=== PATIENT | male | born 1975 | race Hispanic/Latino ===

== ENCOUNTER 2021-01-22 18:31 | Inpatient (IN) | payer OTHER, BC ==
[~2021-01-22] VITALS: Ht 157.5 cm; Wt 82.1 kg
[2021-01-22 19:40] LABS: BASOPHILS % (AUTO) 0.3 % (0.0-5.0); EOSINOPHILS % (AUTO) 1.1 % (0.0-8.0); LYMPHOCYTES % (AUTO) 15.3 % (21.0-51.0); MEAN CORPUSCULAR HEMOGLOBIN 28.5 pg (27.0-33.0); MEAN CORPUSCULAR HGB CONC 32.6 g/dL (32.0-36.0); MEAN CORPUSCULAR VOLUME 87.5 fL (79-99); MONOCYTES % (AUTO) 9.6 % (3.0-13.0); NEUTROPHILS % (AUTO) 72.9 % (40.0-77.0); PLATELET COUNT (AUTO) 642 K/uL (130-400); RED CELL DISTRIBUTION WIDTH 13.2 % (11.0-15.5); WHITE BLOOD COUNT (AUTO) 11.3 K/uL (4.8-10.8)
[2021-01-22 19:56] LABS: INR 1.22 (0.85-1.15); PROTHROMBIN TIME 13.1 SEC (9.6-11.6)
[2021-01-22 19:57] LABS: PARTIAL THROMBOPLASTIN TIME 26.1 SEC (26.3-35.5)
[2021-01-22 20:05] LABS: CARBON DIOXIDE 29 mmol/L (21-32); CHLORIDE 96 mmol/L (101-111); CREATININE 1.1 mg/dL (0.5-1.5); GLOMERULAR FILTR. RATE CALC 78 mL/min (>60); GLUCOSE,RANDOM 106 mg/dL (70-105); POTASSIUM 3.6 mmol/L (3.5-5.1); SODIUM SERUM 134 mmol/L (136-145); UREA NITROGEN, BLOOD 13 mg/dL (7-18)
[2021-01-22 20:09] LABS: B-TYPE NATRIURETIC PEPTIDE 166 pg/mL (0-100)
[2021-01-22 20:09] LABS: APPEARANCE,URINE Clear (CLEAR); BILIRUBIN,URINE Negative (NEGATIVE); COLOR,URINE Yellow (YELLOW); GLUCOSE, URINE (UA) Negative (NEGATIVE); KETONES,URINE Negative (NEGATIVE); LEUKOCYTE ESTERASE ,URINE Negative (NEGATIVE); NITRATE,URINE Negative (NEGATIVE); OCCULT BLOOD,URINE Negative (NEGATIVE); PH,URINE 5.5 (5.0-8.0); PROTEIN,URINE Negative (NEGATIVE); UROBILINOGEN,URINE 0.2 mg/dL (0.2-1.0)
[2021-01-22 20:18] LABS: ALANINE AMINOTRANSFERASE 66 U/L (12-78); ALBUMIN 3.3 g/dL (3.5-5.0); ASPARTATE AMINOTRANSFERASE 46 U/L (10-37); BILIRUBIN,TOTAL 0.5 mg/dL (0.2-1.0); CREATINE KINASE, TOTAL 41 U/L (21-232); MYOGLOBIN 22 ng/mL (10-92); TOTAL PROTEIN, SERUM 8.5 g/dL (6.0-8.3); TROPONIN I < 0.04 ng/mL (0.00-0.06)
[2021-01-22] MEDS ORDERED: IOHEXOL-350 75 ML VIAL IV ONE (21:03)
[2021-01-22] MEDS ORDERED: MORPHINE SULFATE 2 MG/ML 1ML SYG IV PRN (23:45)
[2021-01-23] VITALS (7 sets, daily range): BP systolic 100–130; BP diastolic 53–75
[2021-01-23] MEDS ORDERED: AZITHROMYCIN 500MG+NS 250ML 250 ML IV SCH
[2021-01-23] MEDS ORDERED: AZITHROMYCIN 500MG+NS 250ML 250 ML IV ONE ×2 (00:43→00:58)
[2021-01-23] MEDS ORDERED: GUAIFENESIN-DM 200/20 MG 10 ML PO PRN (00:45)
[2021-01-23] MEDS ORDERED: ACETAMINOPHEN EXTRA STRENGTH 500 MG TABLET ONE (00:58)
[2021-01-23] MEDS: DOXYCYCLINE 100MG+NS 250ML 250 ML IV SCH ×2 (02:23→12:59)
[2021-01-23] MEDS ORDERED: TRAM50TA4 PO (03:03)
[2021-01-23] MEDS ORDERED: POTA20TA12 PO (03:03)
[2021-01-23] MEDS ORDERED: METO25TA6 PO (03:03)
[2021-01-23] MEDS ORDERED: CYCL5TAB PO (03:03)
[2021-01-23] MEDS ORDERED: ATOR40TA71 PO (03:03)
[2021-01-23] MEDS ORDERED: FURO20TA4 PO (03:03)
[2021-01-23 04:40] LABS: BASOPHILS % (AUTO) 0.2 % (0.0-5.0); EOSINOPHILS % (AUTO) 1.5 % (0.0-8.0); HEMATOCRIT 30.2 % (42-54); LYMPHOCYTES % (AUTO) 18.8 % (21.0-51.0); MEAN CORPUSCULAR HGB CONC 32.1 g/dL (32.0-36.0); NEUTROPHILS % (AUTO) 69.7 % (40.0-77.0); PLATELET COUNT (AUTO) 559 K/uL (130-400); RED BLOOD CELL COUNT(AUTO) 3.47 MIL/uL (4.50-6.20); RED CELL DISTRIBUTION WIDTH 13.2 % (11.0-15.5); WHITE BLOOD COUNT (AUTO) 9.1 K/uL (4.8-10.8)
[2021-01-23 05:12] LABS: ALBUMIN 2.8 g/dL (3.5-5.0); BILIRUBIN,TOTAL 0.6 mg/dL (0.2-1.0); POTASSIUM 3.9 mmol/L (3.5-5.1); TOTAL PROTEIN, SERUM 7.3 g/dL (6.0-8.3)
[2021-01-23] MEDS: POLYETHYLENE GLYCOL 3350 17 GM POWD.PACK PO SCH (09:00)
[2021-01-23] MEDS: FAMOTIDINE/PF 20 MG/2 ML VIAL IV SCH (10:09)
[2021-01-23] MEDS: FUROSEMIDE 20 MG TABLET PO SCH (10:09)
[2021-01-23] MEDS: ASPIRIN 81 MG EC TAB PO SCH (10:09)
[2021-01-23] MEDS: ACETAMINOPHEN 325 MG TAB PO PRN ×2 (11:39→18:37)
[2021-01-23] MEDS ORDERED: TRAMADOL HCL 50 MG TABLET PO PRN (12:00)
[2021-01-23] MEDS ORDERED: MORPHINE SULFATE 2 MG/ML 1ML SYG IVP PRN (12:00)
[2021-01-23 12:39] LABS: CREATINE KINASE, TOTAL 25 U/L (21-232); MYOGLOBIN 17 ng/mL (10-92); TROPONIN I < 0.04 ng/mL (0.00-0.06)
[2021-01-23] MEDS: CEFEPIME HCL 1 GM VIAL IVP SCH ×2 (14:35→21:22)
[2021-01-23 17:37] LABS: CREATINE KINASE, TOTAL 27 U/L (21-232); MYOGLOBIN 19 ng/mL (10-92); TROPONIN I < 0.04 ng/mL (0.00-0.06)
[2021-01-23] MEDS ORDERED: METOPROLOL TARTRATE 25 MG TAB PO SCH (21:00)
[2021-01-23] MEDS: ATORVASTATIN CALCIUM 40 MG TABLET PO SCH (21:23)
[2021-01-23] MEDS: COLCHICINE 0.6 MG TABLET PO SCH (21:23)
[2021-01-23] MEDS: METOPROLOL TARTRATE 25 MG TAB PO SCH (21:23)
[2021-01-24 00:55] LABS: CREATINE KINASE, TOTAL 23 U/L (21-232); MYOGLOBIN 15 ng/mL (10-92); TROPONIN I < 0.04 ng/mL (0.00-0.06)
[2021-01-24 03:52] VITALS: BP 119/65
[2021-01-24] MEDS: CEFEPIME HCL 1 GM VIAL IVP SCH ×2 (05:13→13:33)
[2021-01-24 05:15] LABS: CHOLESTEROL 82 mg/dL (<200); HDL CHOLESTEROL 30 mg/dL (29-71); LDL DIRECT 44 mg/dL (0-99); TRIGLYCERIDES 48 mg/dL (30-200)
[2021-01-24 07:21] LABS: BASOPHILS % (AUTO) 0.3 % (0.0-5.0); EOSINOPHILS % (AUTO) 1.4 % (0.0-8.0); HEMATOCRIT 31.1 % (42-54); LYMPHOCYTES % (AUTO) 15.4 % (21.0-51.0); MEAN CORPUSCULAR HEMOGLOBIN 28.8 pg (27.0-33.0); MEAN CORPUSCULAR HGB CONC 33.1 g/dL (32.0-36.0); MEAN CORPUSCULAR VOLUME 86.9 fL (79-99); MONOCYTES % (AUTO) 9.1 % (3.0-13.0); NEUTROPHILS % (AUTO) 73.2 % (40.0-77.0); PLATELET COUNT (AUTO) 552 K/uL (130-400); RED BLOOD CELL COUNT(AUTO) 3.58 MIL/uL (4.50-6.20); RED CELL DISTRIBUTION WIDTH 13.5 % (11.0-15.5); WHITE BLOOD COUNT (AUTO) 9.9 K/uL (4.8-10.8)
[2021-01-24 07:37] LABS: CREATININE 0.9 mg/dL (0.5-1.5); POTASSIUM 3.5 mmol/L (3.5-5.1)
[2021-01-24 08:49] VITALS: BP 122/72
[2021-01-24] MEDS: POLYETHYLENE GLYCOL 3350 17 GM POWD.PACK PO SCH (09:00)
[2021-01-24] MEDS: ASPIRIN 81 MG EC TAB PO SCH (09:03)
[2021-01-24] MEDS: COLCHICINE 0.6 MG TABLET PO SCH (09:04)
[2021-01-24] MEDS: FUROSEMIDE 20 MG TABLET PO SCH (09:04)
[2021-01-24] MEDS: FAMOTIDINE/PF 20 MG/2 ML VIAL IV SCH (09:04)
[2021-01-24] MEDS: METOPROLOL TARTRATE 25 MG TAB PO SCH ×2 (09:04→19:49)
[2021-01-24] MEDS: ENOXAPARIN SODIUM 30 MG/0.3 ML SQ SCH (09:05)
[2021-01-24] MEDS: LEVOFLOXACIN 750 MG/D5W 150 ML 150 ML IV SCH (09:06)
[2021-01-24] MEDS ORDERED: LIDOCAINE HCL-MPF 1% 2ML VIAL IV PRN (09:30)
[2021-01-24] MEDS ORDERED: POTASSIUM CHLORIDE 20MEQ/100ML 100 ML IV PRN (09:30)
[2021-01-24] MEDS ORDERED: POTASSIUM CHLORIDE 10% ELIXIR 20 MEQ/15 ML UDCUP PO PRN (09:30)
[2021-01-24] MEDS: POTASSIUM CHLORIDE 20 MEQ ERTAB PO PRN ×2 (10:52→13:33)
[2021-01-24 11:40] VITALS: BP 109/68
[2021-01-24] MEDS: CLONAZEPAM 1 MG TABLET PO PRN (13:33)
[2021-01-24] MEDS ORDERED: VANCOMYCIN PROTOCOL PER PHARMACY IV SCH (14:30)
[2021-01-24] MEDS ORDERED: COMPOUND IV REFRIGERATED 1 EACH IVSOLN MISC PRN (15:30)
[2021-01-24] MEDS ORDERED: VANCOMYCIN 1.5 GM in SODIUM CHLORIDE 0.9% 250 ML IV ONE (16:00)
[2021-01-24 16:30] VITALS: BP 104/54
[2021-01-24] MEDS: MEROPENEM 1 GM VIAL IVP SCH (16:50)
[2021-01-24] MEDS: ONDANSETRON HCL 4 MG/2 ML VIAL IV PRN (16:57)
[2021-01-24] MEDS: ATORVASTATIN CALCIUM 40 MG TABLET PO SCH (19:49)
[2021-01-24] MEDS: MONTELUKAST SODIUM 10 MG TAB PO SCH (19:50)
[2021-01-24] MEDS: ACETAMINOPHEN 325 MG TAB PO PRN (19:51)
[2021-01-24 20:02] VITALS: BP 116/63
[2021-01-24] MEDS: IPRATROPIUM 0.5 MG/2.5 ML INH IH SCH (22:10)
[2021-01-24 23:40] VITALS: BP 107/63
[2021-01-25] MEDS: MEROPENEM 1 GM VIAL IVP SCH ×3 (00:07→19:26)
[2021-01-25] MEDS: VANCOMYCIN 750MG + NS 250 ML IV SCH ×4 (00:08→08:20)
[2021-01-25] MEDS: ONDANSETRON HCL 4 MG/2 ML VIAL IV PRN ×2 (00:08→08:19)
[2021-01-25] MEDS: IPRATROPIUM 0.5 MG/2.5 ML INH IH SCH ×6 (02:28→21:44)
[2021-01-25 03:56] VITALS: BP 97/66
[2021-01-25 05:29] LABS: BASOPHILS % (AUTO) 0.4 % (0.0-5.0); EOSINOPHILS % (AUTO) 2.2 % (0.0-8.0); HEMATOCRIT 29.4 % (42-54); LYMPHOCYTES % (AUTO) 19.7 % (21.0-51.0); MEAN CORPUSCULAR HEMOGLOBIN 27.6 pg (27.0-33.0); MEAN CORPUSCULAR VOLUME 86.5 fL (79-99); MONOCYTES % (AUTO) 9.7 % (3.0-13.0); NEUTROPHILS % (AUTO) 67.4 % (40.0-77.0); PLATELET COUNT (AUTO) 531 K/uL (130-400); RED CELL DISTRIBUTION WIDTH 13.3 % (11.0-15.5); WHITE BLOOD COUNT (AUTO) 8.1 K/uL (4.8-10.8)
[2021-01-25 05:39] LABS: POTASSIUM 3.9 mmol/L (3.5-5.1)
[2021-01-25] MEDS: ASPIRIN 81 MG EC TAB PO SCH (08:18)
[2021-01-25] MEDS: COLCHICINE 0.6 MG TABLET PO SCH (08:18)
[2021-01-25] MEDS: METOPROLOL TARTRATE 25 MG TAB PO SCH ×2 (08:18→20:55)
[2021-01-25] MEDS: FUROSEMIDE 20 MG TABLET PO SCH (08:19)
[2021-01-25] MEDS: ENOXAPARIN SODIUM 30 MG/0.3 ML SQ SCH (08:19)
[2021-01-25] MEDS: FAMOTIDINE/PF 20 MG/2 ML VIAL IV SCH (08:19)
[2021-01-25] MEDS: LEVOFLOXACIN 750 MG/D5W 150 ML 150 ML IV SCH (08:20)
[2021-01-25 08:27] VITALS: BP 122/66
[2021-01-25] MEDS: POLYETHYLENE GLYCOL 3350 17 GM POWD.PACK PO SCH (08:44)
[2021-01-25 11:55] VITALS: BP 101/58
[2021-01-25] MEDS: CLONAZEPAM 1 MG TABLET PO PRN (14:28)
[2021-01-25] MEDS ORDERED: KETOROLAC TROMETHAMINE 15MG/ML IV PRN (14:45)
[2021-01-25] MEDS ORDERED: BACLOFEN 10 MG TABLET PO SCH (16:15)
[2021-01-25 16:30] VITALS: BP 105/59
[2021-01-25] MEDS: VANCOMYCIN 1GM+NS 250ML 250 ML IV SCH (16:52)
[2021-01-25 20:00] VITALS: BP 120/68
[2021-01-25] MEDS: ATORVASTATIN CALCIUM 40 MG TABLET PO SCH (20:54)
[2021-01-25] MEDS: MONTELUKAST SODIUM 10 MG TAB PO SCH (20:55)
[2021-01-25] MEDS: ACETAMINOPHEN 325 MG TAB PO PRN (20:56)
[2021-01-25 23:46] VITALS: BP 103/64
[2021-01-26] MEDS: ONDANSETRON HCL 4 MG/2 ML VIAL IV PRN (00:10)
[2021-01-26] MEDS: MEROPENEM 1 GM VIAL IVP SCH ×3 (00:10→18:49)
[2021-01-26] MEDS: VANCOMYCIN 1GM+NS 250ML 250 ML IV SCH ×3 (00:11→16:00)
[2021-01-26] MEDS: IPRATROPIUM 0.5 MG/2.5 ML INH IH SCH ×6 (01:38→22:24)
[2021-01-26 04:00] VITALS: BP 105/64
[2021-01-26 05:43] LABS: BASOPHILS % (AUTO) 0.4 % (0.0-5.0); EOSINOPHILS % (AUTO) 2.9 % (0.0-8.0); HEMATOCRIT 29.8 % (42-54); LYMPHOCYTES % (AUTO) 18.8 % (21.0-51.0); MEAN CORPUSCULAR HEMOGLOBIN 27.8 pg (27.0-33.0); MEAN CORPUSCULAR HGB CONC 31.9 g/dL (32.0-36.0); MEAN CORPUSCULAR VOLUME 87.1 fL (79-99); MONOCYTES % (AUTO) 10.8 % (3.0-13.0); NEUTROPHILS % (AUTO) 66.6 % (40.0-77.0); PLATELET COUNT (AUTO) 488 K/uL (130-400); RED BLOOD CELL COUNT(AUTO) 3.42 MIL/uL (4.50-6.20); RED CELL DISTRIBUTION WIDTH 13.6 % (11.0-15.5); WHITE BLOOD COUNT (AUTO) 8.1 K/uL (4.8-10.8)
[2021-01-26 06:03] LABS: POTASSIUM 3.8 mmol/L (3.5-5.1)
[2021-01-26 06:49] VITALS: BP 109/56
[2021-01-26] MEDS: POLYETHYLENE GLYCOL 3350 17 GM POWD.PACK PO SCH (09:00)
[2021-01-26] MEDS: METOPROLOL TARTRATE 25 MG TAB PO SCH ×2 (10:02→20:50)
[2021-01-26] MEDS: FAMOTIDINE/PF 20 MG/2 ML VIAL IV SCH (10:02)
[2021-01-26] MEDS: COLCHICINE 0.6 MG TABLET PO SCH (10:03)
[2021-01-26] MEDS: ASPIRIN 81 MG EC TAB PO SCH (10:03)
[2021-01-26] MEDS: FUROSEMIDE 20 MG TABLET PO SCH (10:04)
[2021-01-26] MEDS: ENOXAPARIN SODIUM 30 MG/0.3 ML SQ SCH (10:05)
[2021-01-26] MEDS: LEVOFLOXACIN 750 MG/D5W 150 ML 150 ML IV SCH (10:51)
[2021-01-26 12:00] VITALS: BP 116/65
[2021-01-26 16:00] VITALS: BP 129/64
[2021-01-26] MEDS: VANCOMYCIN 1.25 GM in SODIUM CHLORIDE 0.9% 250 ML IV SCH (18:49)
[2021-01-26 20:00] VITALS: BP 109/60
[2021-01-26] MEDS: MONTELUKAST SODIUM 10 MG TAB PO SCH (20:50)
[2021-01-26] MEDS: ATORVASTATIN CALCIUM 40 MG TABLET PO SCH (20:50)
[2021-01-26] MEDS: ACETAMINOPHEN 325 MG TAB PO PRN (20:55)
[2021-01-27 00:06] VITALS: BP 103/54
[2021-01-27] MEDS: VANCOMYCIN 1.25 GM in SODIUM CHLORIDE 0.9% 250 ML IV SCH ×2 (00:55→10:29)
[2021-01-27] MEDS: MEROPENEM 1 GM VIAL IVP SCH ×4 (00:55→23:51)
[2021-01-27] MEDS: IPRATROPIUM 0.5 MG/2.5 ML INH IH SCH ×4 (01:54→22:23)
[2021-01-27 04:02] VITALS: BP 125/74
[2021-01-27 04:04] LABS: BASOPHILS % (AUTO) 0.2 % (0.0-5.0); EOSINOPHILS % (AUTO) 4.3 % (0.0-8.0); HEMATOCRIT 27.6 % (42-54); LYMPHOCYTES % (AUTO) 22.8 % (21.0-51.0); MEAN CORPUSCULAR HEMOGLOBIN 28.5 pg (27.0-33.0); MEAN CORPUSCULAR HGB CONC 33.3 g/dL (32.0-36.0); MEAN CORPUSCULAR VOLUME 85.4 fL (79-99); MONOCYTES % (AUTO) 10.8 % (3.0-13.0); NEUTROPHILS % (AUTO) 61.4 % (40.0-77.0); PLATELET COUNT (AUTO) 437 K/uL (130-400); RED BLOOD CELL COUNT(AUTO) 3.23 MIL/uL (4.50-6.20); RED CELL DISTRIBUTION WIDTH 13.6 % (11.0-15.5); WHITE BLOOD COUNT (AUTO) 8.2 K/uL (4.8-10.8)
[2021-01-27 04:15] LABS: CREATININE 1.1 mg/dL (0.5-1.5); POTASSIUM 3.7 mmol/L (3.5-5.1)
[2021-01-27 07:00] VITALS: BP 103/67
[2021-01-27] MEDS: POLYETHYLENE GLYCOL 3350 17 GM POWD.PACK PO SCH (09:00)
[2021-01-27] MEDS: ASPIRIN 81 MG EC TAB PO SCH (10:26)
[2021-01-27] MEDS: METOPROLOL TARTRATE 25 MG TAB PO SCH ×2 (10:26→22:14)
[2021-01-27] MEDS: FAMOTIDINE/PF 20 MG/2 ML VIAL IV SCH (10:26)
[2021-01-27] MEDS: COLCHICINE 0.6 MG TABLET PO SCH (10:26)
[2021-01-27] MEDS: FUROSEMIDE 20 MG TABLET PO SCH (10:27)
[2021-01-27] MEDS: POTASSIUM CHLORIDE 20 MEQ ERTAB PO PRN ×2 (10:27→13:49)
[2021-01-27] MEDS: ENOXAPARIN SODIUM 30 MG/0.3 ML SQ SCH (10:29)
[2021-01-27] MEDS: LEVOFLOXACIN 750 MG/D5W 150 ML 150 ML IV SCH (10:29)
[2021-01-27 11:00] VITALS: BP 123/67
[2021-01-27] MEDS ORDERED: DOXY100C2 PO (15:21)
[2021-01-27] MEDS ORDERED: IPRNEB IH (15:21)
[2021-01-27 16:00] VITALS: BP 115/65
[2021-01-27] MEDS: VANCOMYCIN 1GM+NS 250ML 250 ML IV SCH (18:22)
[2021-01-27 19:33] VITALS: BP 119/69
[2021-01-27] MEDS: MONTELUKAST SODIUM 10 MG TAB PO SCH (22:14)
[2021-01-27] MEDS: CLONAZEPAM 1 MG TABLET PO PRN (22:14)
[2021-01-27] MEDS: ATORVASTATIN CALCIUM 40 MG TABLET PO SCH (22:14)
[2021-01-28] MEDS: ONDANSETRON HCL 4 MG/2 ML VIAL IV PRN (00:05)
[2021-01-28 01:08] VITALS: BP 105/64
[2021-01-28] MEDS: VANCOMYCIN 1GM+NS 250ML 250 ML IV SCH (02:00)
[2021-01-28 04:27] VITALS: BP 107/67
[2021-01-28 04:47] LABS: BASOPHILS % (AUTO) 0.4 % (0.0-5.0); EOSINOPHILS % (AUTO) 4.4 % (0.0-8.0); HEMATOCRIT 30.8 % (42-54); MEAN CORPUSCULAR HGB CONC 30.8 g/dL (32.0-36.0); MEAN CORPUSCULAR VOLUME 87.5 fL (79-99); MONOCYTES % (AUTO) 11.7 % (3.0-13.0); PLATELET COUNT (AUTO) 452 K/uL (130-400); RED BLOOD CELL COUNT(AUTO) 3.52 MIL/uL (4.50-6.20); RED CELL DISTRIBUTION WIDTH 13.7 % (11.0-15.5); WHITE BLOOD COUNT (AUTO) 7.5 K/uL (4.8-10.8)
[2021-01-28 05:06] LABS: CREATININE 1.1 mg/dL (0.5-1.5); POTASSIUM 3.9 mmol/L (3.5-5.1)
[2021-01-28] MEDS: IPRATROPIUM 0.5 MG/2.5 ML INH IH SCH (06:58)
[2021-01-28 07:00] VITALS: BP 96/63
[2021-01-28] MEDS ORDERED: MEROPENEM 1 GM VIAL IVP SCH ×2 (08:00→14:00)
[2021-01-28] MEDS ORDERED: FAMOTIDINE 20MG TAB 20 MG TAB PO SCH (09:00)
[2021-01-28] MEDS: POLYETHYLENE GLYCOL 3350 17 GM POWD.PACK PO SCH (09:00)
[2021-01-28] MEDS: COLCHICINE 0.6 MG TABLET PO SCH (09:39)
[2021-01-28] MEDS: ASPIRIN 81 MG EC TAB PO SCH (09:39)
[2021-01-28] MEDS: FUROSEMIDE 20 MG TABLET PO SCH (09:40)
[2021-01-28] MEDS: ENOXAPARIN SODIUM 30 MG/0.3 ML SQ SCH (09:41)
[2021-01-28] MEDS: METOPROLOL TARTRATE 25 MG TAB PO SCH (09:41)
[2021-01-28] MEDS ORDERED: VANCOMYCIN 1GM+NS 250ML 250 ML IV SCH ×2 (10:00→14:00)
[2021-01-28] MEDS ORDERED: AEC81 PO (10:09)
[2021-01-28 11:00] VITALS: BP 104/55
== END 2021-01-28 14:03 | disposition home or self-care (01) | DRG 194 ==
LOC: EDH 18:31 → EDHIP 23:35 → 4DH 01-23 01:14
PROVIDERS: ADMIT Internal Medicine; ATTEND Internal Medicine
DX: J18.9 Pneumonia, unspecified organism (principal); J98.11 Atelectasis; J90 Pleural effusion, not elsewhere classified; E87.1 Hypo-osmolality and hyponatremia; J81.1 Chronic pulmonary edema; I10 Essential (primary) hypertension; E78.5 Hyperlipidemia, unspecified; E66.9 Obesity, unspecified; Y95 Nosocomial condition; I25.10 Atherosclerotic heart disease of native coronary artery without angina pectoris; D64.9 Anemia, unspecified; E78.00 Pure hypercholesterolemia, unspecified; E11.9 Type 2 diabetes mellitus without complications; R53.81 Other malaise; I70.0 Atherosclerosis of aorta; Z20.822 Contact with and (suspected) exposure to COVID-19; Z68.33 Body mass index [BMI] 33.0-33.9, adult; Z95.1 Presence of aortocoronary bypass graft; Z88.5 Allergy status to narcotic agent; I25.2 Old myocardial infarction; Z79.899 Other long term (current) drug therapy
CPT/HCPCS: 36415; 71045; 71275; 80048; 80053; 80061; 80202; 81003; 82550; 83605; 83874; 83880; 84145; 84484; 85025; 85378; 85610; 85651; 85730; 86140; 86900; 86901; 87040; 87071; 87088; 87205; 87426; 87804; 93005; 93970; 94640; G0378; J0456; J0692; J1650; J1885; J1956; J2185; J2405; J3370; J3490; J7050; Q9967; U0003

== ENCOUNTER → 2022-11-05 | Outpatient (CLI) | payer BC ==
[~2022-11-05] MED LIST: AEC81 PO; ATOR40TA71 PO; CYCL5TAB PO; DOXY100C5 PO; FURO20TA4 PO; IPRNEB IH; METO25TA6 PO; POTA-193 PO; TRAM50TA4 PO
[2022-11-05 12:07] LABS: BASOPHILS % (AUTO) 0.3 % (0.0-5.0); EOSINOPHILS % (AUTO) 1.9 % (0.0-8.0); HEMATOCRIT 41.7 % (42-54); LYMPHOCYTES % (AUTO) 40.5 % (21.0-51.0); MEAN CORPUSCULAR HEMOGLOBIN 30.2 pg (27.0-33.0); MEAN CORPUSCULAR HGB CONC 34.5 g/dL (32.0-36.0); MEAN CORPUSCULAR VOLUME 87.4 fL (79-99); MONOCYTES % (AUTO) 8.8 % (3.0-13.0); NEUTROPHILS % (AUTO) 48.1 % (40.0-77.0); PLATELET COUNT (AUTO) 288 K/uL (130-400); RED BLOOD CELL COUNT(AUTO) 4.77 MIL/uL (4.50-6.20); RED CELL DISTRIBUTION WIDTH 12.9 % (11.0-15.5)
[2022-11-05 12:21] LABS: POTASSIUM 3.9 mmol/L (3.5-5.1)
== END | disposition home or self-care (01) ==
LOC: LAB 10:00
PROVIDERS: ATTEND Internal Medicine
DX: I25.10 Atherosclerotic heart disease of native coronary artery without angina pectoris (principal)
CPT/HCPCS: 36415; 80048; 80061; 85025

== ENCOUNTER → 2023-06-21 | Outpatient (CLI) | payer BC ==
[2023-06-21 11:59] LABS: BASOPHILS # (AUTO) 0.03 K/uL (0.00-0.20); BASOPHILS % (AUTO) 0.4 % (0.0-5.0); EOSINOPHILS # (AUTO) 0.18 K/uL (0.00-0.70); EOSINOPHILS % (AUTO) 2.2 % (0.0-8.0); HEMATOCRIT 40.9 % (42-54); IMMATURE GRANULOCYTE ABSOLUTE 0.02 K/uL (0-1); LYMPHOCYTES # (AUTO) 2.9 K/uL (1.0-4.8); LYMPHOCYTES % (AUTO) 36.1 % (21.0-51.0); MEAN CORPUSCULAR HEMOGLOBIN 30.8 pg (27.0-33.0); MEAN CORPUSCULAR VOLUME 90.7 fL (79-99); MONOCYTES # (AUTO) 0.7 K/uL (0.1-1.0); NEUTROPHILS # (AUTO) 4.3 K/uL (1.8-7.7); NEUTROPHILS % (AUTO) 53.1 % (40.0-77.0); PLATELET COUNT (AUTO) 291 K/uL (130-400); RED BLOOD CELL COUNT(AUTO) 4.51 MIL/uL (4.50-6.20); RED CELL DISTRIBUTION WIDTH 13.4 % (11.0-15.5); WHITE BLOOD COUNT (AUTO) 8.1 K/uL (4.8-10.8)
[2023-06-21 12:18] LABS: CREATININE 1.1 mg/dL (0.5-1.5); POTASSIUM 4.1 mmol/L (3.5-5.1)
[2023-06-21 12:42] LABS: HEMOGLOBIN A1C 7.1 % (4.0-6.0)
== END | disposition home or self-care (01) ==
LOC: LAB 08:31
PROVIDERS: ATTEND Internal Medicine
DX: Z01.810 Encounter for preprocedural cardiovascular examination (principal); E78.5 Hyperlipidemia, unspecified; I25.10 Atherosclerotic heart disease of native coronary artery without angina pectoris
CPT/HCPCS: 36415; 80048; 80061; 83036; 85025